=== PATIENT | male | born 1990 | race Caucasian/White ===

== ENCOUNTER 2016-07-14 17:22 | Emergency (ER) | payer SELFPAY ==
[~2016-07-14] VITALS: Ht 177.8 cm; Wt 88.6 kg
[~2016-07-14 17:22] MED LIST: AMOXICILLIN 50500 MG PO; AMOXIL125 MG; ASPIRIN 32325 MG/TAB PO; CEPHALEXIN500 M1 PO; CLEOCIN HC150 MG/CAP PO; CLEOCIN HCL300 MG PO; CLINDAMYCIN150 MG PO; FLEXERIL 1010 MG/TAB PO; LASIX 20MG TABL20 MG PO; MOTRIN 800800 MG/TAB PO; NAPROSYN500 MG PO; NO HOME MEDICATIONS; NORCO 325 MG-51 TAB PO; PEN-VEE K500 MG PO; PERIDEX (CHLOR480 ML MM; PREDNISONE20 MG PO; PRIL40 PO; PROAIR HFA0.09 MG/AC IH; ROXICODONE 55 MG/TAB PO; TYLENOL 325MG325 MG PO; ULTRAM 50MG TAB50 MG PO
[2016-07-14 17:24] VITALS: TEMP 98.2
[2016-07-14] MEDS ORDERED: ULTRAM 50MG TAB50 MG PO (17:57)
[2016-07-14 18:08] VITALS: BP 131/74; PULSE 87
== END 2016-07-14 18:08 | disposition home or self-care (01) ==
LOC: COL.ER 17:22
DX: G89.18 Other acute postprocedural pain (principal); K08.89 Other specified disorders of teeth and supporting structures; F17.210 Nicotine dependence, cigarettes, uncomplicated

== ENCOUNTER 2016-08-10 19:48 | Emergency (ER) | payer SELFPAY ==
[~2016-08-10] VITALS: Ht 180.3 cm; Wt 86.4 kg
[2016-08-10 19:50] VITALS: BP 133/72; PULSE 109; TEMP 98.4
[2016-08-10 20:42] LABS: INFLUENZA B NEGATIVE
[2016-08-10] MEDS ORDERED: PREDNISONE20 MG PO (20:51)
== END 2016-08-10 21:04 | disposition home or self-care (01) ==
LOC: COL.ER 19:48
PROVIDERS: Nurse Practitioner
DX: J20.9 Acute bronchitis, unspecified (principal); F17.210 Nicotine dependence, cigarettes, uncomplicated
CPT/HCPCS: J7512

== ENCOUNTER 2016-08-13 22:26 | Emergency (ER) | payer SELFPAY ==
[~2016-08-13] VITALS: Ht 177.8 cm; Wt 86.4 kg
[2016-08-13 22:28] VITALS: TEMP 98.2
[2016-08-13 23:24] LABS: BASO # 0.1 (0.0-0.2); BASO % 0.5 % (0.0-2.0); EOS # 0.3 (0.0-0.7); EOS % 2.4 % (0-4.0); GRAN # 6.5 (1.4-6.5); GRAN % 58.5 % (42.2-75.2); HEMATOCRIT 41.6 % (42.0-52.0); HEMOGLOBIN 14.3 g/dl (13.5-18.0); LYMPH # 2.9 (1.2-3.4); LYMPH % 26.5 % (20.0-51.0); MEAN CELL VOLUME 89 fl (80.0-100.0); MEAN CORPUSCULAR HEMOGLOBIN 31 pg (27.0-31.0); MEAN CORPUSCULAR HGB CONC 34 g/dl (33.0-37.0); MEAN PLATELET VOLUME 9.5 fl (7.4-10.4); MONO # 1.3 (0.1-0.6); MONO % 11.9 % (1.7-9.3); PLATELET COUNT 225 K/mm3 (130-400); RED BLOOD COUNT 4.69 M/mm3 (4.20-5.60); REDCELL DISTRIBUTION WIDTH-CV 12.5 % (11.5-14.5); WHITE BLOOD COUNT 11.1 K/mm3 (4.8-10.8)
[2016-08-13 23:33] LABS: ADJUSTED CALCIUM 9.3 mg/dL (8.4-10.2); ALBUMIN 3.6 gm/dL (3.5-5.0); BILIRUBIN,TOTAL 0.4 mg/dL (0.0-1.0); CREATININE, serum 0.83 mg/dL (0.66-1.25); POTASSIUM 3.5 mmol/L (3.4-5.0); TOTAL PROTEIN 6.2 gm/dL (6.4-8.2)
[2016-08-14] MEDS ORDERED: PHENERGAN 25 TA25 MG PO (00:26)
[2016-08-14 00:40] VITALS: BP 126/79; PULSE 89
== END 2016-08-14 00:42 | disposition home or self-care (01) ==
LOC: COL.ER 22:26
PROVIDERS: Emergency Medicine
DX: R11.10 Vomiting, unspecified (principal); R19.7 Diarrhea, unspecified; R10.13 Epigastric pain
CPT/HCPCS: C9113; J1170; J2550; J7030

== ENCOUNTER 2016-11-06 17:59 | Emergency (ER) | payer SELFPAY ==
[~2016-11-06] VITALS: Ht 180.3 cm; Wt 90.9 kg
[~2016-11-06 17:59] MED LIST changes: +PHENERGAN 25 TA25 MG PO
[2016-11-06 18:04] VITALS: BP 137/79; TEMP 98.2
[2016-11-06] MEDS ORDERED: AMOXICILLIN 50500 MG PO (19:05)
[2016-11-06 19:41] VITALS: PULSE 82
== END 2016-11-06 19:40 | disposition home or self-care (01) ==
LOC: COL.ER 17:59
DX: K08.89 Other specified disorders of teeth and supporting structures (principal); K03.81 Cracked tooth; F17.210 Nicotine dependence, cigarettes, uncomplicated

== ENCOUNTER 2016-11-09 19:56 | Emergency (ER) | payer SELFPAY ==
[~2016-11-09] VITALS: Ht 180.3 cm; Wt 90.9 kg
[2016-11-09 19:59] VITALS: PULSE 94; TEMP 97.7
== END 2016-11-09 20:32 | disposition left against medical advice (07) ==
LOC: COL.ER 19:56
DX: R21 Rash and other nonspecific skin eruption (principal); Z53.21 Procedure and treatment not carried out due to patient leaving prior to being seen by health care provider; N48.89 Other specified disorders of penis; R30.0 Dysuria; F17.210 Nicotine dependence, cigarettes, uncomplicated

== ENCOUNTER 2016-11-19 09:22 | Emergency (ER) | payer SELFPAY ==
[~2016-11-19] VITALS: Ht 180.3 cm; Wt 90.9 kg
[2016-11-19 09:24] VITALS: BP 147/82; PULSE 94; TEMP 98.5
== END 2016-11-19 10:45 | disposition home or self-care (01) ==
LOC: COL.ER 09:22
DX: K08.89 Other specified disorders of teeth and supporting structures (principal)